=== PATIENT | female | born 1980 | race Caucasian/White ===

== ENCOUNTER 2017-05-12 00:53 | Outpatient (CLI) | payer OTHER ==
[~2017-05-12] VITALS: Ht 172.7 cm; Wt 97.0 kg
[~2017-05-12 00:53] MED LIST: WELLBUTRIN SR150 MG PO
[2017-05-12 01:28] VITALS: BP 122/60
[2017-05-12 02:44] LABS: EOSINOPHIL (%) 0.9 % (0-5); EOSINOPHIL COUNT 0.1 K/uL (0-0.3); HEMATOCRIT 35.2 % (36.0-46.0); IMMATURE GRANULOCYTE (%) 0.4 % (0.0-0.7); IMMATURE GRANULOCYTE COUNT 0.1 K/uL; INSTRUMENT ABS NEUTROPHIL CT 7.7 K/uL; LYMPHOCYTE COUNT 2.6 K/uL (1.0-2.8); MCH 32.1 PG (29.0-34.0); MCHC 35.5 G/DL (30.0-36.0); MCV 90.3 FL (83-99); MEAN PLAT.VOLUME 11.7 uM^3 (9.5-12.4); MONOCYTE (%) 6.3 % (3-12); MONOCYTE COUNT 0.7 K/uL (0-0.8); NEUTROPHIL (%) 69.1 % (45-76); NEUTROPHIL COUNT 7.7 K/uL (1.8-6.4); PLATELET COUNT 102 K/uL (156-360); RBC DIS.WIDTH-SD 42.5 % (39-53); WHITE BLOOD COUNT 11.2 K/uL (4.1-10.2)
[2017-05-12 02:57] VITALS: BP 122/70
[2017-05-12] MEDS ORDERED: COLACE100 MG PO (03:53)
[2017-05-12] MEDS ORDERED: PRENATAL TABLE1 EAC3 PO (03:53)
[2017-05-12 04:27] VITALS: BP 101/49
[2017-05-12 05:27] VITALS: BP 127/57
[2017-05-12 06:26] VITALS: BP 111/61
[2017-05-12] MEDS ORDERED: MOTRIN800 MG PO (14:36)
== END 2017-05-12 07:25 | disposition home or self-care (01) ==
LOC: LDRP-OP 00:53 → 2WEST 00:54 → LDRP-OP 05-14 20:12
PROVIDERS: Obstetrics & Gynecology Gynecology
DX: O48.0 Post-term pregnancy (principal); Z3A.40 40 weeks gestation of pregnancy; O47.1 False labor at or after 37 completed weeks of gestation; O99.113 Other diseases of the blood and blood-forming organs and certain disorders involving the immune mechanism complicating pregnancy, third trimester; D69.6 Thrombocytopenia, unspecified; Z88.0 Allergy status to penicillin
CPT/HCPCS: 59025; 85025; 86900; 86901; G0378

== ENCOUNTER 2017-05-12 10:48 | Inpatient (IN) | payer OTHER ==
[2017-05-12] VITALS (18 sets, daily range): BP systolic 106–139; BP diastolic 57–77
[~2017-05-12 10:48] MED LIST changes: +COLACE100 MG PO; +PRENATAL TABLE1 EAC3 PO
[2017-05-12 12:01] LABS: EOSINOPHIL (%) 0.3 % (0-5); HEMATOCRIT 34.3 % (36.0-46.0); IMMATURE GRANULOCYTE (%) 0.3 % (0.0-0.7); INSTRUMENT ABS NEUTROPHIL CT 9.4 K/uL; LYMPHOCYTE COUNT 1.4 K/uL (1.0-2.8); MCHC 35.6 G/DL (30.0-36.0); MEAN PLAT.VOLUME 11.7 uM^3 (9.5-12.4); MONOCYTE (%) 5.5 % (3-12); MONOCYTE COUNT 0.6 K/uL (0-0.8); NEUTROPHIL (%) 81.4 % (45-76); NEUTROPHIL COUNT 9.4 K/uL (1.8-6.4); PLATELET COUNT 91 K/uL (156-360); RBC DIS.WIDTH-CV 13.2 % (11.8-14.6); RBC DIS.WIDTH-SD 43.4 % (39-53); RED BLOOD COUNT 3.81 M/uL (3.80-5.20); WHITE BLOOD COUNT 11.5 K/uL (4.1-10.2)
[2017-05-12] MEDS ORDERED: MOTRIN800 MG PO (14:36)
[2017-05-13 05:53] LABS: EOSINOPHIL (%) 0.8 % (0-5); EOSINOPHIL COUNT 0.1 K/uL (0-0.3); HEMATOCRIT 31.3 % (36.0-46.0); IMMATURE GRANULOCYTE (%) 0.4 % (0.0-0.7); INSTRUMENT ABS NEUTROPHIL CT 7.5 K/uL; LYMPHOCYTE COUNT 2.2 K/uL (1.0-2.8); MCH 31.7 PG (29.0-34.0); MCHC 35.1 G/DL (30.0-36.0); MCV 90.2 FL (83-99); MEAN PLAT.VOLUME 11.3 uM^3 (9.5-12.4); MONOCYTE (%) 7.7 % (3-12); MONOCYTE COUNT 0.8 K/uL (0-0.8); NEUTROPHIL (%) 70.6 % (45-76); NEUTROPHIL COUNT 7.5 K/uL (1.8-6.4); PLATELET COUNT 92 K/uL (156-360); RBC DIS.WIDTH-CV 13.2 % (11.8-14.6); RBC DIS.WIDTH-SD 43.2 % (39-53); RED BLOOD COUNT 3.47 M/uL (3.80-5.20); WHITE BLOOD COUNT 10.6 K/uL (4.1-10.2)
[2017-05-13 07:20] VITALS: BP 122/60
[2017-05-13 15:40] VITALS: BP 111/54
[2017-05-13 22:10] VITALS: BP 112/57
[2017-05-14 07:20] VITALS: BP 91/55
== END 2017-05-14 18:16 | disposition home or self-care (01) | DRG 775 ==
LOC: LDRP-OP 10:48 → 2WEST 10:49 → LDRP-OP 06-21 08:57
PROVIDERS: Midwife
PROC: 00HU33Z Insertion of Infusion Device into Spinal Canal, Percutaneous Approach (ICD-10-PCS; principal; 2017-05-12)
PROC: 0HQ9XZZ Repair Perineum Skin, External Approach (ICD-10-PCS; principal; 2017-05-12)
PROC: 10E0XZZ Delivery of Products of Conception, External Approach (ICD-10-PCS; principal; 2017-05-12)
PROC: 3E0R3CZ (ICD-10-PCS; principal; 2017-05-12)
PROC: 10907ZC Drainage of Amniotic Fluid, Therapeutic from Products of Conception, Via Natural or Artificial Opening (ICD-10-PCS; principal; 2017-05-12)
DX: O99.824 Streptococcus B carrier state complicating childbirth (principal); O77.0 Labor and delivery complicated by meconium in amniotic fluid; O70.0 First degree perineal laceration during delivery; Z3A.40 40 weeks gestation of pregnancy; Z37.0 Single live birth
CPT/HCPCS: 85025; 85025 91; 86900; 86901; C1755; J3010; J7120